=== PATIENT | female | born 1990 | race Caucasian/White ===

== ENCOUNTER 2021-04-19 15:32 | Emergency (ER) | payer OTHER ==
[2021-04-19 15:54] VITALS: BP 113/78; PULSE 79; TEMP 97.7; BMI 34.0
[2021-04-19] MEDS ORDERED: METHOCARBAMOL 500 MG TABLET PO ONE (16:44)
[2021-04-19] MEDS ORDERED: KETOROLAC TROMETHAMINE 30 MG/1 ML VIAL IM ONE (16:44)
[2021-04-19] MEDS ORDERED: KETOROLAC TROMETHAMINE 30 MG/1 ML VIAL ONE (16:49)
[2021-04-19] MEDS ORDERED: METHOCARBAMOL 500 MG TABLET ONE (16:49)
[2021-04-19 18:02] LABS: EPI CELLS 26 /uL (0-25.1); HYALINE CASTS 3 /uL (0-3.1); URINE APPEARANCE CLOUDY; URINE BACTERIA 273 /uL (0-1359); URINE BILIRUBIN NEGATIVE (NEGATIVE); URINE COLOR DK YELLOW; URINE GLUCOSE (UA) NEGATIVE (NEGATIVE); URINE KETONE 1+ (NEGATIVE); URINE LEUK ESTERASE NEGATIVE (NEGATIVE); URINE NITRITE NEGATIVE (NEGATIVE); URINE PROTEIN TRACE (NEGATIVE); URINE WBC 15 /uL (0-25.8)
[2021-04-19 18:03] LABS: HCG,QUALITATIVE URINE Negative
[2021-04-19 18:25] LABS: URINE RBC 233.7 /uL (0-23.9)
== END 2021-04-19 21:09 | disposition home or self-care (01) ==
LOC: JERFT 15:32
PROC: 3E023GC Introduction of Other Therapeutic Substance into Muscle, Percutaneous Approach (ICD-10-PCS; principal; 2021-04-19)
DX: M54.50 Low back pain, unspecified (principal); M79.605 Pain in left leg; V49.50XA Passenger injured in collision with unspecified motor vehicles in traffic accident, initial encounter
CPT/HCPCS: 72100-TC-FY; 72131-TC; 73502-TC-LT-FY; 73552-TC-LT-FY; 74177-TC; 81003; 84703; 99285-25; Q9967

== ENCOUNTER 2021-12-03 04:06 | Day surgery (SDC) | payer OTHER ==
[2021-12-02 13:37] VITALS: BMI 34.0
[2021-12-03] MEDS ORDERED: ONDANSETRON 4 MG/2 ML VIAL ONE (07:48)
[2021-12-03] MEDS ORDERED: MIDAZOLAM HCL 2 MG/2 ML SINGLE DOSE VIAL ONE (07:48)
[2021-12-03] MEDS ORDERED: LIDOCAINE HCL/PF (2%) 40 MG/2 ML VIAL ONE (07:48)
[2021-12-03] MEDS ORDERED: DEXAMETHASONE SOD PHOSPHATE 4 MG/1 ML VIAL ONE (07:48)
[2021-12-03] MEDS ORDERED: PROPOFOL 20 ML ONE (07:48)
[2021-12-03] MEDS ORDERED: BUPIVACAINE HCL/PF 0.5% (5MG/ML) 10 ML VIAL ONE (09:01)
[2021-12-03] MEDS ORDERED: ceFAZolin SODIUM 1 GM VIAL ONE (09:19)
[2021-12-03] MEDS ORDERED: ceFAZolin SODIUM 1 GM VIAL IVPB ONE (09:20)
[2021-12-03] MEDS ORDERED: oxyCODONE HCL 5 MG TABLET PO PRN (10:44)
[2021-12-03] MEDS ORDERED: ONDANSETRON 4 MG/2 ML VIAL IVPUSH PRN (10:44)
[2021-12-03] MEDS ORDERED: LACTATED RINGERS SOLUTION 1,000 ML IV SCH (10:45)
[2021-12-03 13:04] VITALS: RESP 20; TEMP 98.8
[2021-12-03] MEDS ORDERED: oxyCODONE HCL 5 MG TABLET ONE (14:00)
[2021-12-03 14:05] VITALS: BP 110/67; PULSE 72
== END 2021-12-03 15:20 | disposition home or self-care (01) ==
LOC: JASU-SURG 04:06
PROVIDERS: ATTEND Surgery Vascular Surgery
PROC: 06DY0ZZ Extraction of Lower Vein, Open Approach (ICD-10-PCS; principal; 2021-12-03 09:25)
DX: I83.93 Asymptomatic varicose veins of bilateral lower extremities (principal)
CPT/HCPCS: 81025; 88304-TC; 94760

== ENCOUNTER 2022-03-30 04:59 | Day surgery (SDC) | payer OTHER ==
[2022-03-25 15:27] VITALS: BMI 35.9
[2022-03-30] MEDS ORDERED: ALBUTEROL SO4 HFA INHALER IH ONE (09:57)
[2022-03-30 11:05] VITALS: BP 118/79; PULSE 68; RESP 20
[2022-03-30 14:17] VITALS: TEMP 100
== END 2022-03-30 11:45 | disposition home or self-care (01) ==
LOC: JASU-ENDO 04:59
PROVIDERS: ATTEND Student in an Organized Health Care Education/Training Program
PROC: 0DB98ZX Excision of Duodenum, Via Natural or Artificial Opening Endoscopic, Diagnostic (ICD-10-PCS; 2022-03-30)
PROC: 0DB68ZX Excision of Stomach, Via Natural or Artificial Opening Endoscopic, Diagnostic (ICD-10-PCS; 2022-03-30)
PROC: 0DB38ZX Excision of Lower Esophagus, Via Natural or Artificial Opening Endoscopic, Diagnostic (ICD-10-PCS; 2022-03-30)
PROC: 0DB58ZX Excision of Esophagus, Via Natural or Artificial Opening Endoscopic, Diagnostic (ICD-10-PCS; 2022-03-30)
PROC: 0DB78ZX Excision of Stomach, Pylorus, Via Natural or Artificial Opening Endoscopic, Diagnostic (ICD-10-PCS; principal; 2022-03-30 11:00)
DX: K25.9 Gastric ulcer, unspecified as acute or chronic, without hemorrhage or perforation (principal); K29.70 Gastritis, unspecified, without bleeding; K21.00 Gastro-esophageal reflux disease with esophagitis, without bleeding
CPT/HCPCS: 81025; 88305-TC; 88342-TC

== ENCOUNTER 2022-12-08 08:27 | Observation (INO) | payer OTHER ==
[2022-12-08] MEDS ORDERED: ALBUTEROL SO4 2.5/IPRATROPIUM 0.5 INH SOL 3 ML VIAL.NEB. NEB ONE ×3 (08:52→16:03)
[2022-12-08] MEDS ORDERED: DEXAMETHASONE SOD PHOSPHATE 10 MG/1 ML VIAL ONE (08:55)
[2022-12-08] MEDS ORDERED: DEXAMETHASONE LIQUID 0.5 MG/5 ML PO ONE (08:55)
[2022-12-08] MEDS ORDERED: MAGNESIUM SULFATE IN WATER 2 GM/50 ML IVPB IVPB ONE ×2 (10:56→11:56)
[2022-12-08 11:36] LABS: BASO % 0.1 % (0-2.0); EOS % 0.1 % (0-4.5); HEMATOCRIT 40.4 % (32.4-45.2); HEMOGLOBIN 13.5 GM/dL (10.7-15.3); LYMPH % 22.1 % (8-40); MCH 26.4 pg (25.7-33.7); MCHC 33.5 g/dl (32.0-36.0); MEAN CELL VOLUME 78.7 fl (80-96); MEAN PLT VOLUME 8.1 fl (7.5-11.1); MONO % 7.4 % (3.8-10.2); NEUT % 70.3 % (42.8-82.8); PLATELET COUNT 250 10^3/uL (134-434); RBC 5.14 M/mm3 (3.60-5.2); RDW 13.9 % (11.6-15.6); WHITE BLOOD COUNT 7.5 K/mm3 (4.0-10.0)
[2022-12-08 11:57] LABS: POTASSIUM 5.7 mmol/L (3.5-5.1)
[2022-12-08 12:00] LABS: ALBUMIN 3.4 g/dl (3.4-5.0); BLOOD UREA NITROGEN 9.6 mg/dL (7-18); CALCIUM 8.8 mg/dL (8.5-10.1)
[2022-12-08 12:02] LABS: CREATININE 0.7 mg/dL (0.55-1.3)
[2022-12-08 12:04] LABS: BILIRUBIN,TOTAL 0.4 mg/dL (0.2-1); TOT PROT 7.8 g/dl (6.4-8.2)
[2022-12-08] MEDS ORDERED: AZITHROMYCIN IVPB 500 MG/250 ML BAG IVPB ONE ×2 (14:26→14:34)
[2022-12-08] MEDS: ALBUTEROL SO4 2.5/IPRATROPIUM 0.5 INH SOL 3 ML VIAL.NEB. NEB SCH ×2 (16:35→20:23)
[2022-12-08 17:14] VITALS: BMI 34.4
[2022-12-08] MEDS ORDERED: ACETAMINOPHEN 1000 MG/100 ML BAG IVPB ONE (19:01)
[2022-12-08] MEDS: PANTOPRAZOLE 40 MG TABLET PO SCH (22:14)
[2022-12-09] MEDS: ALBUTEROL SO4 2.5/IPRATROPIUM 0.5 INH SOL 3 ML VIAL.NEB. NEB SCH ×4 (07:55→20:37)
[2022-12-09] MEDS: guaiFENesin/D-METHORPHAN HB 10 ML UNIT-DOSE CUPS PO PRN ×2 (08:09→22:56)
[2022-12-09] MEDS: LORATADINE 10 MG TABLET PO SCH (10:00)
[2022-12-09] MEDS: PANTOPRAZOLE 40 MG TABLET PO SCH ×2 (10:00→22:56)
[2022-12-09] MEDS ORDERED: predniSONE 20 MG TABLET (UD) PO SCH (10:00)
[2022-12-09] MEDS: AZITHROMYCIN IVPB 250 MG in DEXTROSE 5%-WATER - 250 ML IVPB SCH (10:58)
[2022-12-09 11:08] LABS: BASO % 0.1 % (0-2.0); EOS % 0.1 % (0-4.5); HEMATOCRIT 38.3 % (32.4-45.2); LYMPH % 37.8 % (8-40); MCH 26.6 pg (25.7-33.7); MEAN CELL VOLUME 78.3 fl (80-96); MEAN PLT VOLUME 8.4 fl (7.5-11.1); MONO % 5.3 % (3.8-10.2); NEUT % 56.7 % (42.8-82.8); PLATELET COUNT 255 10^3/uL (134-434); RBC 4.89 M/mm3 (3.60-5.2); RDW 13.5 % (11.6-15.6); WHITE BLOOD COUNT 7.7 K/mm3 (4.0-10.0)
[2022-12-09 11:38] LABS: POTASSIUM 3.6 mmol/L (3.5-5.1)
[2022-12-09] MEDS ORDERED: guaiFENesin/CODEINE 5 ML UNIT-DOSE CUPS PO PRN (11:40)
[2022-12-09 11:46] LABS: ALBUMIN 3.3 g/dl (3.4-5.0)
[2022-12-09 11:47] LABS: BLOOD UREA NITROGEN 10.7 mg/dL (7-18); CALCIUM 8.4 mg/dL (8.5-10.1); MAGNESIUM 2.8 mg/dL (1.8-2.4)
[2022-12-09 11:49] LABS: CREATININE 0.7 mg/dL (0.55-1.3)
[2022-12-09 11:50] LABS: PHOSPHOROUS 3.2 mg/dL (2.5-4.9)
[2022-12-09 11:51] LABS: BILIRUBIN,TOTAL 0.4 mg/dL (0.2-1); TOT PROT 7.1 g/dl (6.4-8.2)
[2022-12-09] MEDS ORDERED: IBUPROFEN 600 MG TABLET (FP) PO ONE (12:00)
[2022-12-09] MEDS: BUDESONIDE/FORMETEROL FUMARATE 160/4.5 mcg INHALER IH SCH ×2 (13:17→23:00)
[2022-12-09] MEDS: FLUTICASONE PROP 0.05% 16 GM NASAL SPRAY NS SCH ×2 (15:01→22:58)
[2022-12-09] MEDS ORDERED: methylPREDNISolone NA SUCC 40 MG/1 ML VIAL IVPUSH ONE (17:00)
[2022-12-09] MEDS: methylPREDNISolone NA SUCC 40 MG/1 ML VIAL IVPUSH SCH (17:12)
[2022-12-09] MEDS ORDERED: ACETAMINOPHEN 1000 MG/100 ML BAG IVPB ONE (19:11)
[2022-12-09] MEDS ORDERED: MONTELUKAST NA 10 MG TABLET PO SCH (22:00)
[2022-12-10] MEDS: methylPREDNISolone NA SUCC 40 MG/1 ML VIAL IVPUSH SCH (02:24)
[2022-12-10 06:37] VITALS: RESP 18
[2022-12-10] MEDS: ALBUTEROL SO4 2.5/IPRATROPIUM 0.5 INH SOL 3 ML VIAL.NEB. NEB SCH ×3 (08:00→15:11)
[2022-12-10] MEDS ORDERED: PROCHLORPERAZINE INJECTION 10 MG/2 ML VIAL IVPB ONE (09:06)
[2022-12-10] MEDS ORDERED: predniSONE 20 MG TABLET (UD) PO SCH ×2 (10:00)
[2022-12-10] MEDS ORDERED: predniSONE 40 MG, predniSONE 10 MG PO SCH (10:45)
[2022-12-10 11:15] LABS: HEMATOCRIT 42.1 % (32.4-45.2); HEMOGLOBIN 13.9 GM/dL (10.7-15.3); MCH 26.3 pg (25.7-33.7); MCHC 33.1 g/dl (32.0-36.0); MEAN CELL VOLUME 79.4 fl (80-96); MEAN PLT VOLUME 8.4 fl (7.5-11.1); PLATELET COUNT 322 10^3/uL (134-434); RBC 5.31 M/mm3 (3.60-5.2); RDW 13.4 % (11.6-15.6); WHITE BLOOD COUNT 12.3 K/mm3 (4.0-10.0)
[2022-12-10] MEDS: LORATADINE 10 MG TABLET PO SCH (11:18)
[2022-12-10] MEDS: PANTOPRAZOLE 40 MG TABLET PO SCH (11:18)
[2022-12-10] MEDS: AZITHROMYCIN IVPB 250 MG in DEXTROSE 5%-WATER - 250 ML IVPB SCH (11:18)
[2022-12-10] MEDS: FLUTICASONE PROP 0.05% 16 GM NASAL SPRAY NS SCH (11:19)
[2022-12-10] MEDS: BUDESONIDE/FORMETEROL FUMARATE 160/4.5 mcg INHALER IH SCH (11:19)
[2022-12-10 11:55] LABS: POTASSIUM 4.2 mmol/L (3.5-5.1)
[2022-12-10 13:01] LABS: CALCIUM 8.9 mg/dL (8.5-10.1)
[2022-12-10 13:04] LABS: CREATININE 0.8 mg/dL (0.55-1.3)
[2022-12-10] MEDS ORDERED: traMADol HCL 50 MG TABLET PO ONE (14:15)
[2022-12-10 15:23] VITALS: BP 113/67; PULSE 82; TEMP 98.5
== END 2022-12-10 18:12 | disposition home or self-care (01) ==
LOC: JERFT 08:27 → JER 08:27 → INTOOBSV 11:14 → UNDOADMOB 11:14 → JERBED 11:14 → J5S 16:17
PROVIDERS: ADMIT Internal Medicine; ATTEND Internal Medicine
PROC: 3E033NZ Introduction of Analgesics, Hypnotics, Sedatives into Peripheral Vein, Percutaneous Approach (ICD-10-PCS; principal; 2022-12-08)
PROC: 3E0F7GC Introduction of Other Therapeutic Substance into Respiratory Tract, Via Natural or Artificial Opening (ICD-10-PCS; 2022-12-08)
PROC: 3E03329 Introduction of Other Anti-infective into Peripheral Vein, Percutaneous Approach (ICD-10-PCS; 2022-12-08)
PROC: 3E033GC Introduction of Other Therapeutic Substance into Peripheral Vein, Percutaneous Approach (ICD-10-PCS; 2022-12-08)
DX: J45.41 Moderate persistent asthma with (acute) exacerbation (principal); F12.90 Cannabis use, unspecified, uncomplicated
CPT/HCPCS: 0241U-QW; 36415; 71046-TC-FY; 80048; 80053; 83735; 84100; 84132; 85025; 85027; 93005; 93010; 94150; 94640; 94761; 96365; 96366; 96367; 96375; 96376; 99285-25; G0378

== ENCOUNTER 2023-03-26 13:12 | Emergency (ER) | payer OTHER ==
[2023-03-26 13:29] VITALS: BP 128/72; BMI 37.8
[2023-03-26] MEDS ORDERED: ONDANSETRON 4 MG/2 ML VIAL IVPUSH ONE ×2 (14:05→17:22)
[2023-03-26] MEDS ORDERED: FAMOTIDINE 20 MG/50 ML IVPB 20 MG/50 ML MG IVPB ONE ×2 (14:05→14:24)
[2023-03-26] MEDS ORDERED: SODIUM CHLORIDE 0.9% 500 ML INFUS.BAG IV ONE (14:05)
[2023-03-26] MEDS ORDERED: MAG HYDROX/AL HYDROX/SIMETH 30 ML UNIT-DOSE CUP PO ONE (14:05)
[2023-03-26] MEDS ORDERED: ACETAMINOPHEN 1000 MG/100 ML BAG IVPB ONE (14:09)
[2023-03-26] MEDS ORDERED: MAG HYDROX/AL HYDROX/SIMETH 30 ML UNIT-DOSE CUP ONE (14:24)
[2023-03-26] MEDS ORDERED: ONDANSETRON 4 MG/2 ML VIAL ONE ×2 (14:24→17:32)
[2023-03-26] MEDS ORDERED: ACETAMINOPHEN INJECTION 100 ML IVPB ONE (14:24)
[2023-03-26 15:01] LABS: BASO % 0.2 % (0-2.0); EOS % 0.1 % (0-4.5); HEMATOCRIT 46.8 % (32.4-45.2); HEMOGLOBIN 15.2 GM/dL (10.7-15.3); MCH 25.9 pg (25.7-33.7); MCHC 32.4 g/dl (32.0-36.0); MEAN CELL VOLUME 79.9 fl (80-96); MEAN PLT VOLUME 8.1 fl (7.5-11.1); MONO % 6.3 % (3.8-10.2); NEUT % 81.4 % (42.8-82.8); PLATELET COUNT 271 10^3/uL (134-434); RBC 5.86 M/mm3 (3.60-5.2); RDW 13.6 % (11.6-15.6); WHITE BLOOD COUNT 6.7 K/mm3 (4.0-10.0)
[2023-03-26 15:25] LABS: POTASSIUM 3.5 mmol/L (3.5-5.1)
[2023-03-26 15:26] LABS: CALCIUM 8.9 mg/dL (8.5-10.1)
[2023-03-26 15:30] LABS: CREATININE 0.6 mg/dL (0.55-1.3)
[2023-03-26 15:32] LABS: BILIRUBIN,TOTAL 0.5 mg/dL (0.2-1); TOT PROT 8.1 g/dl (6.4-8.2)
[2023-03-26] MEDS ORDERED: KETOROLAC TROMETHAMINE 15 MG/ML VIAL IVPUSH ONE (16:08)
[2023-03-26] MEDS ORDERED: KETOROLAC TROMETHAMINE 15 MG/ML VIAL ONE (16:21)
[2023-03-26 17:38] VITALS: PULSE 89; RESP 16; TEMP 98.1
== END 2023-03-26 18:15 | disposition home or self-care (01) ==
LOC: JER 13:12
PROC: 3E033GC Introduction of Other Therapeutic Substance into Peripheral Vein, Percutaneous Approach (ICD-10-PCS; principal; 2023-03-26)
PROC: 3E033GC Introduction of Other Therapeutic Substance into Peripheral Vein, Percutaneous Approach (ICD-10-PCS; 2023-03-26)
PROC: 3E033GC Introduction of Other Therapeutic Substance into Peripheral Vein, Percutaneous Approach (ICD-10-PCS; 2023-03-26)
PROC: 3E033GC Introduction of Other Therapeutic Substance into Peripheral Vein, Percutaneous Approach (ICD-10-PCS; 2023-03-26)
PROC: 3E033NZ Introduction of Analgesics, Hypnotics, Sedatives into Peripheral Vein, Percutaneous Approach (ICD-10-PCS; 2023-03-26)
DX: R11.10 Vomiting, unspecified (principal); R51.9 Headache, unspecified; R19.7 Diarrhea, unspecified; R05.9 Cough, unspecified; Z20.822 Contact with and (suspected) exposure to COVID-19
CPT/HCPCS: 36415; 80053; 83690; 84703; 85025; 99284-25